=== PATIENT | female | born 1945 | race Caucasian/White ===

== ENCOUNTER 2022-09-26 12:47 | Emergency (ER) | payer MEDICARE, BC ==
[~2022-09-26] VITALS: Ht 167.6 cm; Wt 76.2 kg
[2022-09-26] MEDS ORDERED: ATORVASTATIN CA20 MG PO (14:33)
[2022-09-26] MEDS ORDERED: LISINOPRIL10 MG PO (14:33)
[2022-09-26] MEDS ORDERED: LEVOTHYROXINE125 MCG PO (14:33)
== END 2022-09-26 15:18 | disposition home or self-care (01) ==
LOC: ED 12:47
DX: I10 Essential (primary) hypertension (principal); Z79.899 Other long term (current) drug therapy
CPT/HCPCS: 99283

== ENCOUNTER 2024-02-05 20:02 | Emergency (ER) | payer MEDICARE, BC ==
[~2024-02-05] VITALS: Ht 167.6 cm; Wt 88.0 kg
--- NOTE | ~2024-02-05 | EKG ---
[facility] [address] [facility] [address] [place], [place] [address] Draft EK completed, results pending confirmation PATIENT NAME: SELVIN BARNES Electrocardiogram DATE OF : 45 PHYSICIAN: PRELIMINARY REPORT #: [id number] REPORT IS CONFIDENTIAL AND NOT TO BE RELEASED WITHOUT AUTHORIZATION
[~2024-02-05 20:02] MED LIST: ATORVASTATIN CA20 MG PO; LEVOTHYROXINE125 MCG PO; LISINOPRIL10 MG PO
[2024-02-05 21:59] LABS: BASOPHILS 0.9 % (0-2); HEMOGLOBIN 13.4 g/dL (12.0-18.0)
[2024-02-05] MEDS ORDERED: AMLODIPINE BESYLATE 2.5 MG TAB PO ONE (22:00)
[2024-02-05 22:01] LABS: EOSINOPHILS 1.5 % (0-6); HEMATOCRIT 39.1 % (35.0-50.0); LYMPHOCYTES 31.8 % (24-44); MCH 32.9 (27-36); MCHC 34.4 g/dl (30-36); MCV 95.7 fl (81-99); MONOCYTES 8.3 % (0-12); NEUTROPHILS 57.5 % (39-80); PLATELET COUNT 186 K/uL (140-440); RBC 4.09 M/ul (4.3-5.7); RDW 13.2 (10.5-15.0)
[2024-02-05 22:06] LABS: ALBUMIN 3.8 g/dL (3.4-5.0); ALBUMIN/GLOBULIN RATIO 1.15 (1.1-2.4); ANION GAP 10.6 (7-21); BILIRUBIN, TOTAL 0.7 ng/dL (0.2-1.0); BUN/CREATININE RATIO 18.6 (6.0-28.6); CALCIUM 9.1 mg/dL (8.5-10.1); CREATININE, SERUM 0.86 mg/dL (0.55-1.02); POTASSIUM 3.6 mmol/L (3.5-5.1); PROTEIN, TOTAL 7.1 g/dL (6.4-8.2)
[2024-02-05 22:12] LABS: BILIRUBIN, URINE NEGATIVE (negative); BLOOD/HGB, URINE SMALL (Negative); KETONE, URINE NEGATIVE (Negative); LEUK ESTERASE, URINE NEGATIVE (negative); NITRITE, URINE NEGATIVE (negative); PH, URINE 5.5 (5-7)
[2024-02-05 22:18] LABS: EPITHELIAL CELLS, URINE SQUAMOUS 1+ /lpf (0-1+)
[2024-02-05 22:19] LABS: WHITE BLOOD CELLS, URINE 0-1 /HPF (0-5)
[2024-02-05 22:20] LABS: BACTERIA, URINE RARE /hpf (negative); CASTS, URINE NONE SEEN \\lpf; CRYSTALS, URINE NONE SEEN (0-1+); REFLEX CULTURE, URINE No (No)
[2024-02-05] MEDS ORDERED: ACETAMINOPHEN 500 MG TAB PO ONE (22:45)
[2024-02-05 22:56] VITALS: BP 144/58
== END 2024-02-05 22:57 | disposition home or self-care (01) ==
LOC: ED 20:02
PROVIDERS: Internal Medicine
DX: I16.0 Hypertensive urgency (principal); I10 Essential (primary) hypertension; Z86.73 Personal history of transient ischemic attack (TIA), and cerebral infarction without residual deficits; Z79.899 Other long term (current) drug therapy
CPT/HCPCS: 36415; 80053; 81001; 83735; 85025; 93005; 93010; A9270

== ENCOUNTER 2025-07-21 10:59 | Day surgery (SDC) | payer MEDICARE, BC ==
[~2025-07-21] VITALS: Ht 165.1 cm; Wt 82.0 kg
[~2025-07-21 10:59] MED LIST changes: +ALENDRONATE SOD70 MG PO; +CALCIUM500 MG PO; +CITALOPRAM HBR10 MG PO; +HYDROCHLOROTH12.5 MG PO; +IBLOOD GLUCOSE TEST STRIP 1 EA TEST VI PRN; +LACTATED RINGER'S 1,000 ML IV SCH; +LIDOCAINE HCL 1% 5 ML SDV INJ ONE; +MULTI VITAMIN1 EACH PO; +PROBIOTIC1 EAC2 PO; +VITAMIN B COMP1 EACH PO; +VITAMIN D350 MCG PO
[2025-07-21 11:13] VITALS: BP 145/58
[2025-07-21] MEDS ORDERED: LIDOCAINE HCL 2% 5 ML SDV ONE (13:21)
--- NOTE | 2025-07-21 14:30 | NUR ---
07/21/25 1430 Josephine Perea 1420 PT ARRIVED TO PACU ON 2L VIA NC. PT ASLEEP AND LOW BP NOTED. FLUIDS INCREASED AND PT HOB DECREASED. PT REACTIVE TO PAINFUL STIMULI. 1425 BP SLOWING INCREASING.
[2025-07-21 15:00] VITALS: BP 134/60
--- NOTE | 2025-07-23 14:08 | OR ---
[facility] [address] [place], [place] [address] Signed DATE OF OPERATION: 07/21/2025 SURGEON: Tone Sr MD PREOPERATIVE DIAGNOSIS: Positive Cologuard test. POSTOPERATIVE DIAGNOSES: 1. Marginal prep and made adequate with irrigation. 2. No evidence of polyps. PROCEDURE: Total colonoscopy to cecum. ANESTHESIA: Intravenous sedation with propofol, Karo Pérez CRNA. INDICATION: This 79-year-old white woman is a patient Dr. Douglas and has numerous medical comorbidities. She underwent a Cologuard test in October of this year, which was considered positive. She has no symptoms of bleeding, diarrhea, or constipation and no family history of colon cancer. She underwent colonoscopy over 10 years ago in [place], which was said to be normal. 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 On the basis of her positive Cologuard test, she has been offered a colonoscopy. She understands the risk of bleeding, infection, and perforation. She understands as does her daughter who accompanies her, the possibility of a negative test, particularly as a false-positive Cologuard test is approximately 19%. FINDINGS: The prep was not great to be sure. Irrigation was required, but with irrigation, adequate evaluation of the mucosa was accomplished including all of the cecum with good visualization of the appendiceal orifice and the distal colon and no evidence of neoplasm by any means and no clear evidence of any polyp. DESCRIPTION OF PROCEDURE: The patient was brought to the endoscopy suite and placed in lateral decubitus position, given intravenous sedation to the point of slurred speech and nystagmus with full cardiopulmonary monitoring by the keg filler. A digital rectal examination was normal. Electronically Signed By: TONE SR MD 07/23/25 1408 PATIENT NAME: SELVIN BARNES OPERATIVE REPORT DATE OF : 45 REPORT #: [id number] PHYSICIAN: TONE SR MD PCP: PAWEL DOUGLAS MD REPORT IS CONFIDENTIAL AND NOT TO BE RELEASED WITHOUT AUTHORIZATION [facility] [address] [place], [place] [address] Signed An Olympus video colonoscope was passed in the rectum and manipulated throughout the colon ultimately intubating the cecum itself. Abdominal wall stabilization was required to pass the scope fully into the cecum. Irrigation was undertaken in the cecum. The appendiceal orifice was clearly identified and found to be normal. The scope was then withdrawn and irrigation was required throughout. As the prep was marginal initially, but it was considered adequate with time and copious irrigation. The scope was withdrawn and examination throughout showed no sign of diverticular formation, polyp or cancer. Special care was taken in the area of the sigmoid where the prep was least optimal and again no evidence of polyp or abnormality to account for positive Cologuard test. Retroflex view of the rectum was normal as well. The scope was removed. The patient was taken to recovery room in good condition. CONCLUDING DIAGNOSIS: Normal colon despite positive Cologuard test. PLAN: Considering her comorbidities, the positive Cologuard test, but negative colonoscopy would recommend a repeat Cologuard test in 2-3 years. If she should develop symptoms of note, specifically bleeding or other bowel problems, would certainly see soon and repeat colonoscopy with an additionally stringent bowel prep. She will return to the ongoing care of Dr. Douglas otherwise. MD GONZALO Ram/DEANAL /[id number] cc: Dr. Douglas Copies: ~ Electronically Signed By: TONE SR MD 07/23/25 1408 PATIENT NAME: SELVIN BARNES OPERATIVE REPORT DATE OF : 45 REPORT #: [id number] PHYSICIAN: TONE SR MD PCP: PAWEL DOUGLAS MD REPORT IS CONFIDENTIAL AND NOT TO BE RELEASED WITHOUT AUTHORIZATION
== END 2025-07-21 15:15 | disposition home or self-care (01) ==
LOC: OPS 10:59 → DS 10:59 → OPS 12:00
PROVIDERS: ATTEND Surgery
PROC: 0DJD8ZZ Inspection of Lower Intestinal Tract, Via Natural or Artificial Opening Endoscopic (ICD-10-PCS; principal; 2025-07-21 12:05)
DX: Z12.11 Encounter for screening for malignant neoplasm of colon (principal); E03.9 Hypothyroidism, unspecified; E78.5 Hyperlipidemia, unspecified; I72.8 Aneurysm of other specified arteries; R54 Age-related physical debility; Z88.2 Allergy status to sulfonamides; Z79.83 Long term (current) use of bisphosphonates; Z79.890 Hormone replacement therapy; Z79.899 Other long term (current) drug therapy; Z90.710 Acquired absence of both cervix and uterus
CPT/HCPCS: 00811; J2003; J2704; J7121